=== PATIENT | male | born 1965 | race Hispanic/Latino ===

== ENCOUNTER → 2018-07-18 | Outpatient (CLI) | payer OTHER | END | disposition home or self-care (01) | LOC: RAH 10:40 | PROVIDERS: ATTEND Podiatrist | DX: I70.213 Atherosclerosis of native arteries of extremities with intermittent claudication, bilateral legs (principal); M25.774 Osteophyte, right foot; M79.674 Pain in right toe(s); M20.41 Other hammer toe(s) (acquired), right foot; M20.42 Other hammer toe(s) (acquired), left foot; E11.51 Type 2 diabetes mellitus with diabetic peripheral angiopathy without gangrene | CPT/HCPCS: 93922 ==

== ENCOUNTER 2019-01-07 09:51 | Day surgery (SDC) | payer OTHER ==
[2019-01-05 11:01] VITALS: BP 114/63
[2019-01-05 11:15] LABS: BASOPHILS % (AUTO) 1.2 % (0.0-5.0); EOSINOPHILS % (AUTO) 3.5 % (0.0-8.0); HEMATOCRIT 44.2 % (42-54); LYMPHOCYTES % (AUTO) 29.9 % (21.0-51.0); MEAN CORPUSCULAR HEMOGLOBIN 30.7 pg (27.0-33.0); MEAN CORPUSCULAR HGB CONC 35.9 g/dL (32.0-36.0); MEAN CORPUSCULAR VOLUME 85.4 fL (79-99); MONOCYTES % (AUTO) 10.4 % (3.0-13.0); NUCLEATED RED BLOOD CELLS 0.1 % (0.0-0.19); PLATELET COUNT (AUTO) 150 K/uL (130-400); RED BLOOD CELL COUNT(AUTO) 5.17 MIL/uL (4.50-6.20); RED CELL DISTRIBUTION WIDTH 13.3 % (11.0-15.5); WHITE BLOOD COUNT (AUTO) 4.7 K/uL (4.8-10.8)
[2019-01-05 11:24] LABS: CREATININE 0.8 mg/dL (0.5-1.5); POTASSIUM 4.1 mmol/L (3.5-5.1)
[2019-01-07] VITALS (14 sets, daily range): BP systolic 91–118; BP diastolic 48–72
[~2019-01-07] VITALS: Ht 172.7 cm; Wt 89.5 kg
[~2019-01-07 09:51] MED LIST: ENAL2.5T PO; GLIP2.5T2 PO; METF-444 PO; PRAV40TA3 PO
[2019-01-07] MEDS: CEFAZOLIN SODIUM 1 GM VIAL IVP SCH ×2 (10:30→12:12)
--- NOTE | 2019-01-07 10:30 | NUR ---
POTENTIAL FOR INFECTION: SHAVED RIGHT SIDED ABDOMEN TO RIGHT SIDED GROIN AND PERINEUM PER JAQUELINE HARRELL.
[2019-01-07] MEDS ORDERED: SODIUM CHLORIDE 0.9% 1000ML 1,000 ML IV ONE (10:34)
[2019-01-07 10:40] LABS: ALBUMIN 4.3 g/dL (3.5-5.0); BILIRUBIN,DIRECT 0.1 mg/dL (0.0-0.3); BILIRUBIN,TOTAL 0.5 mg/dL (0.2-1.0); TOTAL PROTEIN, SERUM 7.4 g/dL (6.0-8.3)
[2019-01-07] MEDS ORDERED: MIDAZOLAM HCL 1 MG/ML 2ML VIAL ONE (12:05)
[2019-01-07] MEDS ORDERED: LIDOCAINE HCL MPF 1% 5ML VIAL ONE (12:05)
[2019-01-07] MEDS ORDERED: FENTANYL CITRATE PF 50 MCG/1 ML 2ML VIAL ONE ×2 (12:06→12:50)
[2019-01-07] MEDS ORDERED: PROPOFOL 10 MG/ML 20ML VIAL IV ONE ×2 (12:06→12:57)
[2019-01-07] MEDS ORDERED: BUPIVACAINE/EPI/PF 0.5% 30ML VIAL IJ ONE (12:45)
[2019-01-07] MEDS ORDERED: GLYCOPYRROLATE 1 MG/5 ML SYRINGE ONE (12:47)
== END 2019-01-07 15:00 | disposition home or self-care (01) ==
LOC: DAH 09:51
PROVIDERS: ATTEND Student in an Organized Health Care Education/Training Program
DX: L90.5 Scar conditions and fibrosis of skin (principal); L02.214 Cutaneous abscess of groin; Z79.84 Long term (current) use of oral hypoglycemic drugs; Z79.899 Other long term (current) drug therapy; Z85.828 Personal history of other malignant neoplasm of skin
CPT/HCPCS: 11422; 36415; 80048; 80076; 82948 ×2; 85025; 87070; 87076; 87077 ×2; 87186 ×2; 87205; 88305; A4215; A4221; A4222; A4223; A4452; A4930; A6260; A6266; J0690; J2250; J2704 ×2; J3010 ×2; J3490 ×3; J7030

== ENCOUNTER → 2021-09-18 | Outpatient (CLI) | payer OTHER ==
[~2021-09-18] MED LIST changes: -ENAL2.5T PO; +ENAL2.5T16 PO
== END | disposition home or self-care (01) ==
LOC: RAH 09:18
PROVIDERS: ATTEND Orthopaedic Surgery
DX: S83.241A Other tear of medial meniscus, current injury, right knee, initial encounter (principal); S83.281A Other tear of lateral meniscus, current injury, right knee, initial encounter; X58.XXXA Exposure to other specified factors, initial encounter; Y93.89 Activity, other specified; Y92.89 Other specified places as the place of occurrence of the external cause; Y99.8 Other external cause status
CPT/HCPCS: 73721

== ENCOUNTER 2023-08-28 20:55 | Emergency (ER) | payer OTHER ==
[~2023-08-28] VITALS: Ht 170.2 cm; Wt 83.5 kg
[~2023-08-28 20:55] MED LIST changes: -ENAL2.5T16 PO; +ENAL2.5T71 PO
[2023-08-28 22:10] LABS: BASOPHILS # (AUTO) 0.06 K/uL (0.00-0.20); BASOPHILS % (AUTO) 0.6 % (0.0-5.0); EOSINOPHILS # (AUTO) 0.18 K/uL (0.00-0.70); EOSINOPHILS % (AUTO) 1.7 % (0.0-8.0); HEMATOCRIT 45.3 % (42-54); IMMATURE GRANULOCYTE ABSOLUTE 0.03 K/uL (0-1); LYMPHOCYTES # (AUTO) 0.9 K/uL (1.0-4.8); LYMPHOCYTES % (AUTO) 8.1 % (21.0-51.0); MEAN CORPUSCULAR HEMOGLOBIN 28.9 pg (27.0-33.0); MEAN CORPUSCULAR HGB CONC 35.8 g/dL (32.0-36.0); MEAN CORPUSCULAR VOLUME 80.9 fL (79-99); MONOCYTES # (AUTO) 0.7 K/uL (0.1-1.0); MONOCYTES % (AUTO) 6.2 % (3.0-13.0); NEUTROPHILS % (AUTO) 83.1 % (40.0-77.0); PLATELET COUNT (AUTO) 195 K/uL (130-400); WHITE BLOOD COUNT (AUTO) 10.8 K/uL (4.8-10.8)
[2023-08-28 22:21] LABS: INR <= 0.93 (0.85-1.15); PROTHROMBIN TIME 10.2 SEC (9.6-11.6)
[2023-08-28 22:22] LABS: PARTIAL THROMBOPLASTIN TIME 24.2 SEC (26.3-35.5)
[2023-08-28 22:27] LABS: ALBUMIN 4.1 g/dL (3.5-5.0); BILIRUBIN,TOTAL 0.4 mg/dL (0.2-1.0); TOTAL PROTEIN, SERUM 7.3 g/dL (6.0-8.3)
[2023-08-28 22:53] LABS: WBC MORPHOLOGY CONSISTENT W/DIFF
[2023-08-28] MEDS: ONDANSETRON ODT 4MG TAB SL ONE (23:35)
[2023-08-28] MEDS ORDERED: POLY17PO4 PO (23:56)
[2023-08-28] MEDS ORDERED: DOCU-116 PO (23:56)
[2023-08-29 00:38] VITALS: BP 135/68; PULSE 57; RESP 18; O2SAT 98
== END 2023-08-29 00:40 | disposition home or self-care (01) ==
LOC: EDH 20:55
DX: K59.00 Constipation, unspecified (principal); I10 Essential (primary) hypertension; E11.9 Type 2 diabetes mellitus without complications; Z79.84 Long term (current) use of oral hypoglycemic drugs; Z79.899 Other long term (current) drug therapy; Z90.49 Acquired absence of other specified parts of digestive tract; Z98.890 Other specified postprocedural states
CPT/HCPCS: 36415; 74176; 80053; 83605; 83690; 84145; 85025; 85610; 85730